=== PATIENT | male | born 1990 | race Caucasian/White ===

== ENCOUNTER 2017-02-08 20:15 | Emergency (ER) | payer OTHER ==
[2017-02-08 20:18] VITALS: BP 132/60
== END 2017-02-08 21:09 | disposition home or self-care (01) ==
LOC: ED 20:15
DX: F41.9 Anxiety disorder, unspecified (principal); F43.0 Acute stress reaction

== ENCOUNTER 2017-07-05 03:13 | Emergency (ER) | payer BC, OTHER ==
[2017-07-05 03:15] VITALS: BP 125/76
== END 2017-07-05 04:05 | disposition home or self-care (01) ==
LOC: ED 03:13
DX: S39.011A Strain of muscle, fascia and tendon of abdomen, initial encounter (principal); X58.XXXA Exposure to other specified factors, initial encounter; Y93.89 Activity, other specified; Y99.8 Other external cause status; Y92.89 Other specified places as the place of occurrence of the external cause